=== PATIENT | male | born 1930 | race Caucasian/White ===

== ENCOUNTER 2017-01-06 09:25 | Emergency (ER) | payer MEDICARE ==
--- NOTE | 2017-01-11 10:00 | ER ---
ADMIT: 01/06/2017 RM/LOC: ER [facility] MR#: [id number] [facility] [place], [place] [address] [address] [place] [address] Emergency Room Report SEX: M AGE: 86 : 1930 DATE: 01/06/2017 ADDENDUM: CHIEF COMPLAINT: HISTORY OF PRESENT ILLNESS: This is an 86-year-old male who fell possibly this morning, no one actually saw him, this was self-reported. He has a history of dementia. We did a CT head, it is negative for any acute findings. His INR is 1.87. His CBC is normal except for hemoglobin of 12, hematocrit is 37.6. CMP is normal except for creatinine of 1.7, chloride 111. At this time, I am going to send the patient back to [facility]. When talking to his , he just recently started Xanax and Lexapro. I told her at this time, I still think we should continue those medications since he has only been on them for 2 days. [facility]ed [facility] next [facility]. CLINICAL IMPRESSION: Dementia with possible fall. LAKEISHA Purvis / Chuck Martinez MD / modl JOB #: [id number] CC: Chuck Martinez MD, Attending Physician
== END 2017-01-06 13:23 | disposition home or self-care (01) ==
LOC: ER 09:25
PROC: 0HQDXZZ Repair Right Lower Arm Skin, External Approach (ICD-10-PCS; principal; 2017-01-06)
DX: S51.811A Laceration without foreign body of right forearm, initial encounter (principal); F03.90 Unspecified dementia, unspecified severity, without behavioral disturbance, psychotic disturbance, mood disturbance, and anxiety; I10 Essential (primary) hypertension; E11.9 Type 2 diabetes mellitus without complications; Z85.46 Personal history of malignant neoplasm of prostate; Z88.1 Allergy status to other antibiotic agents; W19.XXXA Unspecified fall, initial encounter; Y92.129 Unspecified place in nursing home as the place of occurrence of the external cause

== ENCOUNTER 2017-01-24 23:37 | Emergency (ER) | payer MEDICARE ==
--- NOTE | 2017-02-19 21:26 | ER ---
ADMIT: 01/24/2017 RM/LOC: ER [facility] MR#: [id number] [id number] [facility] [place], [place] [address] [address] [place], [place] [id number] Emergency Room Report SEX: M AGE: 86 : 1930 DATE: 01/24/2017 [facility] 86[facility] with severe [facility], [facility]. He is on Coumadin, was subsequently transferred here for evaluation, cannot obtain history from the patient secondary to severe dementia. See T-sheet for physical. CT scan of the head shows no acute changes. His INR is 2.04. [facility] the [facility]. DIAGNOSIS: Fall. Ryan Gibson MD/ roel JOB #: [id number] CC: Srinivas Hanson MD, Attending Physician . [facility], [facility] Physician
== END 2017-01-25 01:15 | disposition home or self-care (01) ==
LOC: ER 23:37
DX: F03.90 Unspecified dementia, unspecified severity, without behavioral disturbance, psychotic disturbance, mood disturbance, and anxiety (principal); W19.XXXA Unspecified fall, initial encounter; Y92.129 Unspecified place in nursing home as the place of occurrence of the external cause